=== PATIENT | female | born 1970 | race Caucasian/White ===

== ENCOUNTER 2019-08-12 12:32 | Emergency (ER) | payer SELFPAY ==
[2019-08-12 12:43] VITALS: BP 106/73; PULSE 90; TEMP 97.7; BMI 29.2
[2019-08-12] MEDS ORDERED: SODIUM CHLORIDE 1,000 ML IV STA (13:59)
[2019-08-12] MEDS ORDERED: KETOROLAC TROMETHAMINE 30 MG/1 ML VIAL IVPUSH ONE (13:59)
[2019-08-12] MEDS ORDERED: ONDANSETRON 4 MG/2 ML VIAL IVPUSH ONE (14:08)
--- NOTE | 2019-08-12 14:12 | PDOC ---
History of Present Illness - General Chief Complaint: Chest Pain Stated Complaint: CHEST PAIN Time Seen by Provider: 08/12/19 13:38 History Source: Patient Exam Limitations: No Limitations - History of Present Illness Initial Comments: 08/12/19 14:07 48-year-old female presents to ED with complaints of right sided chest pain which she awoke and states symptoms then radiates to her right shoulder blade and now is complaining of throbbing headache. Patient states history of migraine which she states headache with similar presentation but denies any history of gallstones, kidney stones, or recent illness. Patient does state history of fatty liver but states follows up with her primary physician. Patient states poor p.o. intake and complaining of mild nausea. Is this a multiple visit Asthma Patient?: No Timing/Duration: changing over time Severity: moderate Past History - Travel Traveled outside of the country in the last 30 days: No Close contact w/someone who was outside of country & ill: No - Past Medical History Allergies/Adverse Reactions: Allergies Allergy/AdvReac Type Severity Reaction Status Date / Time No Known Allergies Allergy Verified 08/12/19 12:43 COPD: No Diabetes: Yes Other medical history: Migraine - Psycho Social/Smoking Cessation Hx Smoking History: Never smoked Hx Alcohol Use: No Drug/Substance Use Hx: No Substance Use Type: None Patient Lives Alone: No Lives with/in: spouse/SO Review of Systems - Review of Systems Able to Perform ROS?: Yes Constitutional: No: Symptoms Reported HEENTM: No: Symptoms Reported Respiratory: No: Symptoms reported Cardiac (ROS): Yes: Chest Pain (Right-sided) ABD/GI: Yes: Nausea Musculoskeletal: Yes: Back Pain (Right upper) Integumentary: No: Symptoms Reported Neurological: Yes: Headache (Throbbing pressure). No: Weakness, Dizziness Endocrine: No: Symptoms Reported Hematologic/Lymphatic: No: Symptoms Reported *Physical Exam - Vital Signs Last Vital Signs Temp Pulse Resp BP Pulse Ox 97.7 F 90 18 106/73 100 08/12/19 12:40 08/12/19 12:40 08/12/19 12:40 08/12/19 12:40 08/12/19 12:40 - Physical Exam General Appearance: Yes: Nourished, Appropriately Dressed. No: Apparent Distress HEENT: positive: EOMI, SERGIO. negative: Pale Conjunctivae Neck: positive: Normal Thyroid, Supple. negative: Tender Respiratory/Chest: positive: Chest Tender (Right upper chest at midclavicular line - mal at second- 4th ribs), Lungs Clear, Normal Breath Sounds. negative: Respiratory Distress, Accessory Muscle Use Cardiovascular: positive: Regular Rhythm, Regular Rate. negative: Murmur (None) Gastrointestinal/Abdominal: positive: Soft. negative: Tenderness Extremity: positive: Normal Inspection Integumentary: positive: Normal Color, Warm, Moist Neurologic: positive: Motor Strength 5/5 (Ambulatory) Heart Score/ECG Review - ECG Intrepretation Rhythm: Regular Rhythm (Normal sinus rhythm rate 80. Intervals are regular. No ST elevation or depression.) ED Treatment Course - LABORATORY CBC & Chemistry Diagram: 08/12/19 14:36 08/12/19 14:36 Medical Decision Making - Medical Decision Making 08/12/19 14:01 Chief complaint: Initial right upper quadrant/right upper chest aching upon awakening this morning followed by radiation to right upper back now with headache. Patient states mild nausea but denies any abdominal pain, palpitations or dizziness presently. Sided chest pain exam: Patient with reproducible right vital signs stable. EKG normal. Plan: Labs, IV Zofran, fluids and Toradol ordered 08/12/19 16:33 Laboratory Tests 08/12/19 08/12/19 08/12/19 14:36 14:36 14:36 WBC 6.4 Hgb 10.7 Hct 32.9 Neutrophils % 47.3 D Lymphocytes % 41.5 H D Sodium 138 Potassium 3.6 Chloride 106 Carbon Dioxide 26 Anion Gap 6 L Creatinine 0.7 Random Glucose 91 Calcium 8.7 AST 16 ALT 23 Alkaline Phosphatase 66 Total Protein 7.4 Albumin 3.9 Lipase 196 The patient states feeling better. Patient requesting to go home. Will discharge patient home with recommendations to rest drink plenty of fluids, and provider, quiet environment Discharge - Discharge Information Problems reviewed: Yes Clinical Impression/Diagnosis: Headache Condition: Improved Disposition: HOME - Follow up/Referral Referrals: Capo Betancur MD [Primary Care Provider] - - Patient Discharge Instructions Patient Printed Discharge Instructions: DI for Migraine Additional Instructions: Rest, drink plenty of fluids and avoid loud bright places which may trigger your migraine. - Post Discharge Activity
[2019-08-12] MEDS ORDERED: ONDANSETRON 4 MG/2 ML VIAL ONE (14:30)
[2019-08-12] MEDS ORDERED: KETOROLAC TROMETHAMINE 30 MG/1 ML VIAL ONE (14:30)
[2019-08-12 15:09] LABS: BASO % 0.4 % (0-2.0); EOS % 1.1 % (0-4.5); HEMATOCRIT 32.9 % (32.4-45.2); HEMOGLOBIN 10.7 GM/dL (10.7-15.3); LYMPH % 41.5 % (8-40); MCH 24.6 pg (25.7-33.7); MCHC 32.5 g/dl (32.0-36.0); MEAN CELL VOLUME 75.7 fl (80-96); MEAN PLT VOLUME 8.9 fl (7.5-11.1); MONO % 9.7 % (3.8-10.2); NEUT % 47.3 % (42.8-82.8); PLATELET COUNT 277 K/MM3 (134-434); RBC 4.35 M/mm3 (3.60-5.2); RDW 17.4 % (11.6-15.6); WHITE BLOOD COUNT 6.4 K/mm3 (4.0-10.0)
[2019-08-12 15:39] LABS: ALBUMIN 3.9 g/dl (3.4-5.0); BILIRUBIN,TOTAL 0.2 mg/dL (0.2-1); BLOOD UREA NITROGEN 10.2 mg/dL (7-18); CALCIUM 8.7 mg/dL (8.5-10.1); CREATININE 0.7 mg/dL (0.55-1.3); POTASSIUM 3.6 mmol/L (3.5-5.1); TOT PROT 7.4 g/dl (6.4-8.2)
--- NOTE | 2019-08-13 10:36 | EKG ---
Test Reason : Blood Pressure : / mmHG Vent. Rate : 080 BPM Atrial Rate : 080 BPM P-R Int : 124 ms QRS Dur : 084 ms QT Int : 386 ms P-R-T Axes : 020 019 018 degrees QTc Int : 445 ms NORMAL SINUS RHYTHM NORMAL ECG WHEN COMPARED WITH ECG OF 07-OCT-2015 10:31, T WAVE INVERSION NO LONGER EVIDENT IN LATERAL LEADS Confirmed by Andrzej Bingham MD ([id number]) on 08/13/2019 10:36:09 AM Referred By: Confirmed By:Andrzej Bingham MD
== END 2019-08-12 17:06 | disposition home or self-care (01) ==
LOC: JER 12:32
PROC: 3E033GC Introduction of Other Therapeutic Substance into Peripheral Vein, Percutaneous Approach (ICD-10-PCS; principal; 2019-08-12)
PROC: 3E0333Z Introduction of Anti-inflammatory into Peripheral Vein, Percutaneous Approach (ICD-10-PCS; 2019-08-12)
DX: G43.909 Migraine, unspecified, not intractable, without status migrainosus (principal); E11.9 Type 2 diabetes mellitus without complications
CPT/HCPCS: 36415; 80053; 83690; 85025; 93005; 93010; 99282-25; J7030

== ENCOUNTER 2020-11-25 20:43 | Emergency (ER) | payer OTHER ==
[2020-11-25 21:08] VITALS: BP 116/80; PULSE 83; TEMP 98.2; BMI 31.2
[2020-11-25 22:07] LABS: BASO % 0.5 % (0-2.0); EOS % 1.3 % (0-4.5); HEMOGLOBIN 8.1 GM/dL (10.7-15.3); LYMPH % 43.6 % (8-40); MEAN CELL VOLUME 62.9 fl (80-96); MEAN PLT VOLUME 8.8 fl (7.5-11.1); NEUT % 46.6 % (42.8-82.8); PLATELET COUNT 434 K/MM3 (134-434); RBC 4.14 M/mm3 (3.60-5.2); RDW 20.3 % (11.6-15.6)
[2020-11-25 22:11] LABS: EPI CELLS 5 /uL (0-25.1); HYALINE CASTS 0 /uL (0-3.1); MCH 19.5 pg (25.7-33.7); URINE APPEARANCE CLEAR; URINE BACTERIA 103 /uL (0-1359); URINE BILIRUBIN NEGATIVE (NEGATIVE); URINE COLOR YELLOW; URINE GLUCOSE (UA) NEGATIVE (NEGATIVE); URINE KETONE NEGATIVE (NEGATIVE); URINE LEUK ESTERASE NEGATIVE (NEGATIVE); URINE NITRITE NEGATIVE (NEGATIVE); URINE PROTEIN NEGATIVE (NEGATIVE); URINE RBC 3 /uL (0-23.9); URINE UROBILINOGEN 0.2 mg/dL (0.2-1.0); URINE WBC 5 /uL (0-25.8)
[2020-11-25 22:33] LABS: ANISOCYTOSIS 3+; MACROCYTOSIS 0; OVALOCYTE 1+; PLATELET ESTIMATE NORMAL; TEAR DROP CELLS 1+
[2020-11-25 22:41] LABS: ALBUMIN 3.9 g/dl (3.4-5.0); BLOOD UREA NITROGEN 9.1 mg/dL (7-18); CALCIUM 9.3 mg/dL (8.5-10.1)
[2020-11-25 22:44] LABS: CREATININE 0.8 mg/dL (0.55-1.3)
[2020-11-25 22:45] LABS: BILIRUBIN,TOTAL 0.2 mg/dL (0.2-1); TOT PROT 7.6 g/dl (6.4-8.2)
== END 2020-11-26 00:13 | disposition home or self-care (01) ==
LOC: JER 20:43
DX: R31.1 Benign essential microscopic hematuria (principal); D64.9 Anemia, unspecified; R10.9 Unspecified abdominal pain
CPT/HCPCS: 36415; 74177-TC; 80053; 81003; 83690; 84703; 85025; 86850; 86900; 86901; 87086; 99285-25; Q9967

== ENCOUNTER 2021-02-24 09:33 | Day surgery (SDC) | payer OTHER ==
[2021-02-24] MEDS ORDERED: FERRIC CARBOXYMALTOSE 750 MG in SODIUM CHLORIDE 250 ML IVPB ONE (10:20)
[2021-02-24 10:56] VITALS: TEMP 98.6
[2021-02-24 11:33] VITALS: BP 107/65; PULSE 82
== END 2021-02-24 11:37 | disposition home or self-care (01) ==
LOC: FINFUSION 09:33 → FM/S 09:38 → FINFUSION 11:37
PROVIDERS: ATTEND Family Medicine
PROC: 3E033GC Introduction of Other Therapeutic Substance into Peripheral Vein, Percutaneous Approach (ICD-10-PCS; principal; 2021-02-24)
DX: D50.9 Iron deficiency anemia, unspecified (principal)
CPT/HCPCS: 81025; 96365; J1439

== ENCOUNTER 2021-02-26 16:45 | Emergency (ER) | payer OTHER ==
[2021-02-26 17:03] VITALS: BP 128/65; PULSE 77; TEMP 98.7; BMI 34.7
[2021-02-26] MEDS ORDERED: ACETAMINOPHEN/CAFFEINE/BUTALBITAL 1 TAB PO ONE (18:42)
[2021-02-26] MEDS ORDERED: ACETAMINOPHEN/CAFFEINE/BUTALBITAL 1 TAB ONE (18:56)
== END 2021-02-26 19:00 | disposition home or self-care (01) ==
LOC: JER 16:45
DX: G44.209 Tension-type headache, unspecified, not intractable (principal)
CPT/HCPCS: 70450-TC; 99284-25

== ENCOUNTER 2021-03-03 11:49 | Day surgery (SDC) | payer OTHER ==
[2021-03-03] MEDS ORDERED: FERRIC CARBOXYMALTOSE 750 MG in SODIUM CHLORIDE 250 ML IVPB ONE (12:45)
[2021-03-03 13:55] VITALS: BP 98/68; PULSE 65; TEMP 98.4
== END 2021-03-03 14:00 | disposition home or self-care (01) ==
LOC: FINFUSION 11:49 → FM/S 11:54 → FINFUSION 14:00
PROVIDERS: ATTEND Family Medicine
PROC: 3E033GC Introduction of Other Therapeutic Substance into Peripheral Vein, Percutaneous Approach (ICD-10-PCS; principal; 2021-03-03)
DX: D50.9 Iron deficiency anemia, unspecified (principal)
CPT/HCPCS: 81025; 96365; J1439

== ENCOUNTER 2023-05-16 15:31 | Emergency (ER) | payer OTHER ==
[2023-05-16 15:45] VITALS: BP 112/71; PULSE 81; RESP 18; TEMP 98; BMI 31.5
[2023-05-16] MEDS ORDERED: ALBUTEROL SO4 2.5/IPRATROPIUM 0.5 INH SOL 3 ML VIAL.NEB. NEB ONE ×2 (17:32→17:53)
[2023-05-16 18:31] LABS: BASO % 0.5 % (0-2.0); EOS % 1.6 % (0-4.5); HEMOGLOBIN 12.4 GM/dL (10.7-15.3); LYMPH % 41.4 % (8-40); MCHC 33.6 g/dl (32.0-36.0); MEAN CELL VOLUME 86.3 fl (80-96); MEAN PLT VOLUME 8.6 fl (7.5-11.1); MONO % 8.7 % (3.8-10.2); NEUT % 47.8 % (42.8-82.8); PLATELET COUNT 281 10^3/uL (134-434); RBC 4.29 M/mm3 (3.60-5.2); RDW 13.5 % (11.6-15.6); WHITE BLOOD COUNT 7.2 K/mm3 (4.0-10.0)
[2023-05-16 18:44] LABS: POTASSIUM 4.2 mmol/L (3.5-5.1)
[2023-05-16 18:45] LABS: CALCIUM 8.7 mg/dL (8.5-10.1)
[2023-05-16 18:46] LABS: ALBUMIN 3.5 g/dl (3.4-5.0)
[2023-05-16 18:49] LABS: CREATININE 0.6 mg/dL (0.55-1.3)
[2023-05-16 18:51] LABS: BILIRUBIN,TOTAL 0.2 mg/dL (0.2-1); TOT PROT 7.2 g/dl (6.4-8.2)
[2023-05-16 19:14] LABS: EPI CELLS >36 /uL (0-25.1); HYALINE CASTS 0 /uL (0-3.1); PH,URINE 5.5 (5.0-8.0); URINE APPEARANCE CLEAR; URINE BACTERIA 40 /uL (0-1359); URINE BILIRUBIN NEGATIVE (NEGATIVE); URINE COLOR RED; URINE GLUCOSE (UA) NEGATIVE (NEGATIVE); URINE KETONE NEGATIVE (NEGATIVE); URINE LEUK ESTERASE 2+ (NEGATIVE); URINE NITRITE NEGATIVE (NEGATIVE); URINE PROTEIN 1+ (NEGATIVE); URINE UROBILINOGEN 0.2 mg/dL (0.2-1.0); URINE WBC 97 /uL (0-25.8)
[2023-05-16 19:15] LABS: URINE RBC 16469.9 /uL (0-23.9)
[2023-05-16] MEDS ORDERED: DEXAMETHASONE SOD PHOSPHATE 10 MG/1 ML VIAL IVPUSH ONE (19:22)
[2023-05-16] MEDS ORDERED: DEXAMETHASONE SOD PHOSPHATE 10 MG/1 ML VIAL ONE (20:25)
[2023-05-16 20:34] LABS: INR 0.97 (0.83-1.09); PROTHROMBIN TIME (PATIENT) 11.2 SEC (9.7-13.0)
[2023-05-16 20:37] LABS: ACTIVATED PTT 27.4 SECONDS (25.2-36.5)
== END 2023-05-16 21:49 | disposition home or self-care (01) ==
LOC: JER 15:31
PROC: 3E033GC Introduction of Other Therapeutic Substance into Peripheral Vein, Percutaneous Approach (ICD-10-PCS; principal; 2023-05-16)
PROC: 3E0F7GC Introduction of Other Therapeutic Substance into Respiratory Tract, Via Natural or Artificial Opening (ICD-10-PCS; 2023-05-16)
DX: R06.02 Shortness of breath (principal); R07.9 Chest pain, unspecified
CPT/HCPCS: 36415; 71045-TC-FY; 71275-TC; 80053; 81003; 84484; 84703; 85025; 85610; 85730; 93005; 93010; 99285-25; J1100; Q9967

== ENCOUNTER 2024-11-01 16:45 | Emergency (ER) | payer OTHER ==
[2024-11-01 16:54] VITALS: TEMP 97.4; BMI 27.9
[2024-11-01] MEDS ORDERED: METOCLOPRAMIDE HCL INJECTION 10 MG/2 ML VIAL ONE (17:26)
[2024-11-01] MEDS ORDERED: ACETAMINOPHEN INJECTION 100 ML ONE (17:26)
[2024-11-01 18:00] LABS: BASO % 0.3 % (0-2.0); EOS % 1.8 % (0-4.5); HEMATOCRIT 40.4 % (32.4-45.2); HEMOGLOBIN 13.8 GM/dL (10.7-15.3); LYMPH % 38.9 % (8-40); MCHC 34.2 g/dl (32.0-36.0); MEAN CELL VOLUME 90.6 fl (80-96); MEAN PLT VOLUME 8.5 fl (7.5-11.1); MONO % 6.2 % (3.8-10.2); NEUT % 52.8 % (42.8-82.8); PLATELET COUNT 246 10^3/uL (134-434); RBC 4.46 M/mm3 (3.60-5.2); RDW 12.7 % (11.6-15.6); WHITE BLOOD COUNT 5.3 K/mm3 (4.0-10.0)
[2024-11-01] MEDS: SODIUM CHLORIDE 0.9% 500 ML INFUS.BAG IV ONE (18:04)
[2024-11-01] MEDS: ACETAMINOPHEN 1000 MG/100 ML BAG IVPB ONE (18:04)
[2024-11-01] MEDS: METOCLOPRAMIDE HCL INJECTION 10 MG/2 ML VIAL IVPB ONE (18:05)
[2024-11-01 18:09] LABS: PROTHROMBIN TIME (PATIENT) 10.9 SEC (9.7-13.0)
[2024-11-01 18:12] LABS: ACTIVATED PTT 30.8 SECONDS (25.2-36.5); POTASSIUM 3.8 mmol/L (3.5-5.1)
[2024-11-01 18:14] LABS: CALCIUM 9.1 mg/dL (8.5-10.1)
[2024-11-01 18:15] LABS: BLOOD UREA NITROGEN 16.7 mg/dL (7-18); MAGNESIUM 2.3 mg/dL (1.8-2.4)
[2024-11-01 18:18] LABS: CREATININE 0.7 mg/dL (0.55-1.3)
[2024-11-01 18:20] LABS: BILIRUBIN,TOTAL 0.2 mg/dL (0.2-1); TOT PROT 7.5 g/dl (6.4-8.2)
[2024-11-01 18:43] VITALS: BP 119/85; PULSE 93; RESP 17
== END 2024-11-01 19:05 | disposition home or self-care (01) ==
LOC: JER 16:45
PROC: 3E033NZ Introduction of Analgesics, Hypnotics, Sedatives into Peripheral Vein, Percutaneous Approach (ICD-10-PCS; principal; 2024-11-01)
PROC: 3E033GC Introduction of Other Therapeutic Substance into Peripheral Vein, Percutaneous Approach (ICD-10-PCS; 2024-11-01)
DX: R00.2 Palpitations (principal); G43.909 Migraine, unspecified, not intractable, without status migrainosus; R11.2 Nausea with vomiting, unspecified
CPT/HCPCS: 36415; 71046-TC-FY; 80053; 83735; 84439; 84443; 84484; 85025; 85610; 85730; 93005; 93010; 99285-25; J0131